=== PATIENT | male | born 1960 | race Two or more races ===

== ENCOUNTER 2019-03-16 12:52 | Outpatient (CLI) | payer MEDICAID ==
[2019-03-16 15:22] VITALS: BP 142/82
[2019-03-16] MEDS ORDERED: FLOMAX0.4 MG ORAL (15:26)
--- NOTE | 2019-03-16 23:15 | Consultation ---
DATE OF CONSULTATION: 03/16/2019 CONSULTING PHYSICIAN: Maco Kenney M.D. CHIEF COMPLAINT: History of colon cancer, here for followup. HISTORY OF PRESENT ILLNESS: This is a 58-year-old male with history of colon cancer, apparently diagnosed maybe about a year or 2 years ago, had a surgery about a year ago with a colostomy bag now. The patient was referred to us for annual followup for colonoscopy. PAST MEDICAL HISTORY: 1. History of colon cancer. 2. BPH. PAST SURGICAL HISTORY: Colon surgery with colostomy. MEDICATIONS: Flomax. FAMILY HISTORY: Noncontributory. SOCIAL HISTORY: The patient denies any tobacco, alcohol, or IV drug abuse. ALLERGIES: No known drug allergies. PHYSICAL EXAMINATION: VITAL SIGNS: Temperature 97.8, blood pressure is 142/82, pulse 79, respirations 20. HEENT: Normocephalic and atraumatic. Sclerae anicteric. NECK: Supple. No evidence of lymphadenopathy. CARDIOVASCULAR: Regular rhythm. Plus S1 and S2. No obvious murmur. LUNGS: Clear to auscultation bilaterally. ABDOMEN: Positive bowel sounds. Soft, nontender. Colostomy bag in place. No rebound. No guarding. No peritoneal sign. EXTREMITIES: No cyanosis, no clubbing, no edema. ASSESSMENT AND PLAN: This is a 58-year-old male with colon cancer, now with colostomy, needs repeat colonoscopy. The patient was given instruction for colonoscopy with prep, was told to wait for us to get authorization for colonoscopy and we will call him back for procedure. Maco Kenney M.D. DR: Lata JOB#: [id number] CC:
== END 2019-03-16 15:52 | disposition home or self-care (01) ==
LOC: PAN 12:52
DX: C18.9 Malignant neoplasm of colon, unspecified (principal); Z93.3 Colostomy status
CPT/HCPCS: 99202